=== PATIENT | female | born 1980 | race Caucasian/White ===

== ENCOUNTER 2019-04-12 08:15 | Day surgery (SDC) | payer OTHER ==
[2019-04-12] VITALS (13 sets, daily range): BP systolic 130–191; BP diastolic 72–111; PULSE 84–100; RESP 15–22; Ht 165.1 cm; Wt 74.6 kg
[~2019-04-12] VITALS: Ht 165.1 cm; Wt 74.6 kg
[~2019-04-12 08:15] MED LIST: LACTATED RINGER'S 1,000 ML IV SCH; SOD CHLORIDE 0.9% 1,000 ML IV SCH
[2019-04-12] MEDS ORDERED: LEVO175T38 PO (08:53)
--- NOTE | 2019-04-12 10:44 | PREAC ---
Date/Time of Note Date/Time of Note DATE: 04/12/19 TIME: 10:42 Anesthesia Eval and Record Evaluation Time Pre-Procedure Interview DATE: 04/12/19 TIME: 10:42 Age 38 Sex female NPO: 8 hrs Preoperative diagnosis ABNORMAL BLEEDING Planned procedure D&C Past Medical History Past Medical History: Includes Cardio: HTN (TOOK MED FOR A PERIOD THEN STOPPED) Endo: Hypothyroid Surgery & Anesthesia Issues No known issue Meds Anticoagulation: No Beta Suzanne within 24 hr: No Reason Beta Suzanne not given: Pt. not on B-Suzanne Reported Medications Levothyroxine Sodium* (Levoxyl*) 175 Mcg Tablet, 175 MCG PO BEFORE BREAKFAST, #30 TAB 04/12/19 Current Medications Lactated Ringer's 1,000 ml @ 25 mls/hr Q24H IV Last administered on 04/12/19at 09:15; Admin Dose 25 MLS/HR; Start 04/12/19 at 06:00 Sodium Chloride 1,000 ml @ 25 mls/hr Q24H IV ; Start 04/12/19 at 06:00 Meds reviewed: Yes Allergies Coded Allergies: No Known Allergy (Unverified , 04/12/19) Allergies Reviewed: Yes Labs/Studies Labs Reviewed: Reviewed by anesthesiologist Result Diagram: 04/12/19901 Laboratory Tests 04/12/19 09:02 Blood Bank Test 04/12/19 09:02 Antibody Screen NEGATIVE Blood Type A POSITIVE test: Negative Studies: ECG (N/A), CXR (N/A) Pre-procedure Exam Last vitals Vital Signs Date Temp Pulse Resp B/P (MAP) Pulse Ox O2 O2 Flow FiO2 Time Delivery Rate 04/12/19 166/91 09:44 (116) 04/12/19 99.1 85 16 100 09:25 Airway: Adequate mouth opening Mallampati: Mallampati I Teeth: Normal Lung: Normal Heart: Normal ASA Physical Status ASA physical status: 2 Emergency: None Planned Pain Management Parenteral pain med Pre-operative Attestations Prior to commencing anesthesia and surgery, the patient was re-evaluated, there was verification of: *The patient's identity *The results of appropriate recent lab work and preoperative vital signs *The above evaluation not changing prior to induction *Anesthetic plan, risk benefits, alternative and complications discussed with patient/family; questions answered; patient/family understands, accepts and wishes to proceed. SUSY WALKER MD April 12, 2019 10:44
[2019-04-12] MEDS ORDERED: MIDAZOLAM 1 MG/ML 2 ML INJ ONE (10:50)
[2019-04-12] MEDS ORDERED: PROPOFOL 20 ML ONE (10:50)
[2019-04-12] MEDS ORDERED: CEFAZOLIN 1 GM INJ ONE (10:50)
[2019-04-12] MEDS ORDERED: ONDANSETRON 4 MG INJ ONE (10:51)
[2019-04-12] MEDS ORDERED: METOCLOPRAMIDE 10 MG INJ ONE (10:51)
[2019-04-12] MEDS ORDERED: hydrALAzine 20 MG INJ IV PRN (11:00)
[2019-04-12] MEDS ORDERED: KETOROLAC 30 MG INJ IV PRN (11:00)
[2019-04-12] MEDS ORDERED: OXYCODONE/ACETAMINOPHEN (5/325) TAB PO PRN ×2 (11:00)
[2019-04-12] MEDS ORDERED: LABETALOL HCL 20MG INJ IV PRN (11:00)
[2019-04-12] MEDS ORDERED: DESFLURANE 15 MIN ONE (11:00)
[2019-04-12] MEDS ORDERED: MEPERIDINE 25 MG INJ IV PRN (11:00)
[2019-04-12] MEDS ORDERED: ONDANSETRON 4 MG INJ IV PRN (11:00)
[2019-04-12] MEDS ORDERED: FENTAnyl 50 MCG/ML VIAL IV PRN ×3 (11:00)
[2019-04-12] MEDS ORDERED: HYDROmorphONE 1 MG/5 ML IV SYRINGE IV PRN ×3 (11:00)
[2019-04-12] MEDS ORDERED: KETOROLAC 30 MG INJ ONE (11:34)
--- NOTE | 2019-04-12 11:39 | SIPON ---
Date/Time of Note Date/Time of Note DATE: 04/12/19 TIME: 11:38 Operative Report Preoperative Diagnosis Abnormal uterine bleeding Postoperative Diagnosis Same Operation/Procedure Performed D&C Surgeon Sheela Smith MD painter assistant None Anesthesia: general Estimated blood loss: minimal Transfusion Required none Specimen ECC and EMC Grafts/Implants none Complications none SHEELA SMITH MD April 12, 2019 11:39
--- NOTE | 2019-04-12 14:13 | PREOPHP ---
DATE OF ADMISSION: 04/12/2019 HISTORY OF PRESENT ILLNESS: A 38-year-old female, 0, para 0, is admitted with history of pro longed menses. The patient has been on oral contraceptive for control of her menses; however, she co ntinues to have abnormal uterine bleeding. PAST MEDICAL HISTORY: Hypothyroidism and hypertension. PAST SURGICAL HISTORY: Rhinoplasty. ALLERGIES: NO KNOWN ALLERGIES. FAMILY HISTORY: Hypertension and diabetes. PHYSICAL EXAMINATION: VITAL SIGNS: The patient is afebrile. Vital signs are stable. HEAD, NECK AND CHEST: Within normal limits. ABDOMEN: Soft, nontender, nondistended. PELVIC: Normal. EXTREMITIES: Within normal limits. NEUROLOGIC: Within normal limits. IMPRESSION: Abnormal uterine bleeding. PLAN: Dilation and curettage. Risks, benefits and alternatives of procedure were explained to fahad sifuentes. The patient said she understood and gave informed consent for the procedure. Dictated By: SHEELA JEFFERSON/ESTELLA Conf#: [id number] DID#: [id number]
--- NOTE | 2019-04-12 15:48 | OPR ---
DATE OF OPERATION: 04/12/2019 PREOPERATIVE DIAGNOSIS: Abnormal uterine bleeding. POSTOPERATIVE DIAGNOSIS: Abnormal uterine bleeding. OPERATION PERFORMED: Dilation and curettage. SURGEON: Sheela Salgado MD. ANESTHESIA: General. ANESTHESIOLOGIST: Ольга Mahan MD PROCEDURE: The patient was taken to OR room and placed on the operating table in supine position. A fter adequate general anesthesia was given, the patient was placed in dorsal lithotomy position. The area was prepared and draped in the usual sterile fashion. Speculum was placed inside the vagina an d tenaculum was used to grasp the anterior lip of the cervix. Using Kevorkian curet, endocervical cu rettage was performed and specimen obtained was sent to pathology. Next, using cervical dilators, th e cervical os was dilated. Using a sharp curet, endometrial curettage was performed and the specimen obtained was sent to pathology. All the instruments were removed. Adequate hemostasis was assured. Patient tolerated the procedure well. The patient was awakened from anesthesia and transferred to recovery in stable condition. Estimated blood loss was minimal. All counts were correct. Dictated By: SHEELA JEFFERSON/ESTELLA Conf#: [id number] DID#: [id number]
--- NOTE | 2019-04-12 18:56 | PAC ---
Date/Time of Note Date/Time of Note DATE: 04/12/19 TIME: 18:55 Post-Anesthesia Notes Post-Anesthesia Note Last documented vital signs Vital Signs Date Temp Pulse Resp B/P (MAP) Pulse Ox O2 O2 Flow FiO2 Time Delivery Rate 04/12/19 97.5 96 16 130/85 99 12:55 (100) 04/12/19 Room Air 12:32 Activity: WNL Respiratory function: WNL Cardiovascular function: WNL Mental status: Baseline Pain reasonably controlled: Yes Hydration appropriate: Yes Nausea/Vomiting absent: No SUSY WALKER MD April 12, 2019 18:56
== END 2019-04-12 13:41 | disposition home or self-care (01) ==
LOC: SDS 08:15
PROVIDERS: ATTEND Obstetrics & Gynecology
DX: N93.9 Abnormal uterine and vaginal bleeding, unspecified (principal)
CPT/HCPCS: 58120; 84703; 85025; 86850; 86900; 86901; 88305; J0690; J1885; J2250; J2405; J2765; Z7610